=== PATIENT | male | born 1965 | race Caucasian/White ===

== ENCOUNTER → 2018-09-18 15:55 | Outpatient (CLI) | payer OTHER, SELFPAY | PROVIDERS: Referring Provider Otolaryngology Otolaryngology/Facial Plastic Surgery; Visit Provider Otolaryngology Otolaryngology/Facial Plastic Surgery | DX: J32.9 Chronic sinusitis, unspecified (principal) | CPT/HCPCS: 87070; 87205 ==

== ENCOUNTER → 2019-12-08 15:18 | Outpatient (CLI) | payer OTHER, SELFPAY ==
[2017-10-12 13:26] VITALS: BMI 22.7
== END ==
PROVIDERS: Referring Provider Otolaryngology; Visit Provider Otolaryngology Otolaryngology/Facial Plastic Surgery
DX: J32.9 Chronic sinusitis, unspecified (principal)
CPT/HCPCS: 87070; 87186; 87205

== ENCOUNTER 2020-01-09 19:30 | Emergency (ER) | payer OTHER, SELFPAY ==
[2020-01-09 19:31] VITALS: BP 139/84; PULSE 105; RESP 15; TEMP 36.3; O2SAT 100; BMI 22.1
--- NOTE | 2020-01-09 19:42 | CT_ITS ---
STUDY: CT SOFT TISSUE NECK WITH CONTRAST REASON FOR EXAM: Male, 54 years old. LEFT NECK PAIN, dysphagia. RADIATION DOSAGE (If Supplied By Facility): CTDIvol = ( 18.10 ) mGy, DLP = ( 551.52 ) mGycm TECHNIQUE: The patient was scanned in a multi-detector CT scanner. High resolution transaxial imaging was performed following intravenous administration of IV 75mL [id number]-300. Sagittal and coronal images were reconstructed. Individualized dose optimization techniques were used for this CT. COMPARISON: None. FINDINGS: Normal bilateral parotid glands. Normal bilateral patient accounts manager spaces. Normal bilateral parapharyngeal spaces. Normal bilateral carotid spaces. Normal bilateral submandibular glands and spaces. Normal visualized nasopharynx. Normal retropharyngeal space. Normal perivertebral space. Normal visualized bilateral faucial tonsils. The visualized tongue, tongue base and oropharynx are normal. The visualized cervical lymph nodes (levels I-) are within normal size limits, and maintain normal morphology. There is no demonstrated solid or cystic mass lesion. There is no abnormal contrast enhancement. Normal epiglottis, bilateral vallecula and hypopharynx. The pre-epiglottic and paraglottic adipose spaces are normal. Normal visualized bilateral piriform sinuses, aryepiglottic folds, vocal cords, and arytenoid-cricoid articulations. Normal subglottic trachea. Normal bilateral lobes of the thyroid gland. Normal visualized pulmonary apices. Normal visualized paranasal sinuses. Normal visualized cervical spine. CT/Soft Tissue Neck WITH Contrast IMPRESSION: Normal enhanced CT examination of the soft tissues of the neck. Electronically Signed: Winifred Gómez MD at 20:45 EST Tel , Service support ,
--- NOTE | 2020-01-09 19:43 | ED.DCSUM_ITS ---
History of Present Illness Chief Complaint: Other, Pain/Inj Detail of Chief Complaint: Left neck pain Informant: Patient Onset: Weeks, - - Worse today Current Severity: Mild Maximum Severity: Moderate Narrative: She presents with left-sided neck pain. He states he has a degree of chronic pain there from sinus drainage. Today pain is been significantly worse and has had intermittent difficulty swallowing. No fever or chills. He states he just finished an antibiotic about 10 days ago for sinus infection. Past Medical History - Allergies and Home Meds Allergies/Adverse Reactions: Allergies No Known Allergies Allergy (Verified 01/09/20 19:38) Primary Care Physician: Dilip Trevino MD [Primary Care Provider] - Surgical History: - - Ablation of varicose veins Smoking Status: Never smoker Review of Systems General: Denies: Chills, Fever Eyes: Denies: Visual changes - bilaterally ENT: Reports: Sore throat. Denies: Bilateral ear pain Cardiovascular: Denies: Chest pain Respiratory: Denies: Dyspnea, Cough Gastrointestinal: Denies: Abdominal pain, Nausea, Vomiting, Diarrhea Genitourinary: Denies: Dysuria Musculoskeletal: Denies: Extremity Pain Neurological: Denies: Headache Hematologic: Denies: Easy bruising, Easy bleeding Allergy: Denies: Uticaria Physical Exam Vital Signs/Narrative: Vital Signs Temp Pulse Resp BP Pulse Ox 01/09/20 19:31 97.4 F L 105 H 15 139/84 H 100 Inital Vital Signs reviewed: Yes General: Well nourished, Well developed, - - Patient is in no acute distress. He is lying with head of bed elevated approximate 45 degrees and having no difficulty with speaking or swallowing. Head: Normocephalic ENT: Moist mucous membranes, - - Posterior pharynx examination is normal. Neck: Supple Cardiovascular: Regular rate, Regular rhythm Respiratory: No distress, CTA bilaterally Abdomen: Soft, Nontender Back: Nontender Extremities: Nontender Skin: Normal color, No rash Neurological: Alert, Oriented x3 Psychological: Normal affect Diagnostic/Tx/Re-eval Impressions Soft Tissue Neck CT 01/09/20 19:42 IMPRESSION: Normal enhanced CT examination of the soft tissues of the neck. Electronically Signed: Winifred Gómez MD at 20:45 EST Tel , Service support , 01/09/20 19:42 CT Neck [Soft Tissue Neck WITH Contrast] [CT] Stat Laboratory Results 01/09/20 01/09/20 19:30 19:30 WBC 8.8 RBC 5.13 Hgb 16.6 H Hct 46.7 MCV 91.0 MCH 32.4 H MCHC 35.5 RDW Std Deviation 37.6 RDW Coeff of Harpreet 11.3 L Plt Count 170 MPV 10.7 Immature Gran % (Auto) 0.500 Neut % (Auto) 78.2 H Lymph % (Auto) 13.2 L [place] % (Auto) 7.4 Eos % (Auto) 0.2 Baso % (Auto) 0.5 Absolute Neuts (auto) 6.9 Absolute Lymphs (auto) 1.16 Nucleated RBC % 0 Sodium 138 Potassium 4.2 Chloride 103 Carbon Dioxide 31.0 Anion Gap 4 L BUN 14 Creatinine 1.18 Estim Creat Clear Calc 81.28 Est GFR (MDRD) Af Amer 83 Est GFR (MDRD) Non-Af 69 BUN/Creatinine Ratio 11.9 Glucose 92 Calcium 9.2 - Medical Decision Making Test results discussed with patient at bedside. He is reassured with these findings. He will follow-up with Dr. Trevino. ED Disposition - Plan for ED Patient: Disposition: Home or Assisted Living Diagnosis: Neck pain Instructions: NECK PAIN, No Trauma Referrals: Dilip Trevino MD [Primary Care Provider] - 1 Week
[2020-01-09 20:02] LABS: Absolute Lymphocyte Count 1.16 X10^3/uL (0.83-4.51); Absolute Neutrophil Count 6.9 X10^3/uL (2.0-7.7); Basophil# 0.04 X10^3/uL; Basophil% 0.5 % (0-1); Eosinophil# 0.02 X10^3/uL; Eosinophils% 0.2 % (0-5); Hematocrit 46.7 % (40-54); Hemoglobin 16.6 g/dL (13.0-16.5); Lymphocyte # 1.16 X10^3/ul (4.0); Lymphocyte % 13.2 % (19-41); Mean Corp Hgb Conc 35.5 g/dL (32-36); Mean Corpuscular Hgb 32.4 pg (27.0-32.0); Mean Platelet Vol. 10.7 fl (6.2-12.0); Monocyte# 0.65 X10^3/uL; Monocyte% 7.4 % (0-10); NRBC Flagged by Analyzer 0 % (0-5); Neutrophil # 6.88 X10^3/uL (2.7-7.7); Neutrophil % 78.2 % (47-70); Platelet Count 170 K/mm3 (150-450); RBC Distribution Width CV 11.3 % (11.6-14.6); RBC Distribution Width SD 37.6 fl (35.1-43.9); Red Blood Count 5.13 M/mm3 (4.6-6.2); White Blood Count 8.8 K/mm3 (4.4-11.0)
[2020-01-09 20:17] LABS: Anion Gap 4 (5-15); BUN 14 mg/dL (7-18); BUN/Creat Ratio 11.9 RATIO (10-20); Calcium,Total 9.2 mg/dL (8.5-10.1); Chloride 103 mmol/L (98-107); Creatinine, Serum 1.18 mg/dL (0.70-1.30); EST Glomerular Filtration Rate 69 mL/min (>60); Est Glom Filt Rate - Afr Amer 83 mL/min (>60); Estimated Creatinine Clearance 81.28 ml/min; Glucose 92 mg/dL (74-106); Potassium 4.2 mmol/L (3.5-5.1); Sodium Level 138 mmol/L (136-145)
[2020-01-09 21:30] VITALS: RESP 16
[2020-01-09 21:38] VITALS: PULSE 71; O2SAT 98
== END 2020-01-09 21:43 | disposition home or self-care (01) ==
PROVIDERS: Emergency Provider Emergency Medicine; PCP Otolaryngology Otolaryngology/Facial Plastic Surgery
DX: M54.2 Cervicalgia (principal)
CPT/HCPCS: 70491; 80048; 85025; 99283; Q9967

== ENCOUNTER → 2021-01-26 | Outpatient (CLI) | payer OTHER, SELFPAY | END | disposition home or self-care (01) | LOC: LABSPEC 15:03 | PROVIDERS: PCP Family Medicine; Visit Provider Otolaryngology Otolaryngology/Facial Plastic Surgery | DX: J32.8 Other chronic sinusitis (principal) | CPT/HCPCS: 87070; 87205 ==

== ENCOUNTER 2021-02-11 10:09 | Outpatient (RCR) | payer OTHER, SELFPAY ==
[2021-02-11] MEDS: COVID-19 VACC, MRNA(PFIZER)/PF 30 MCG/0.3 ML SYRINGE IM (08:15)
[2021-03-04] MEDS: COVID-19 VACC, MRNA(PFIZER)/PF 30 MCG/0.3 ML SYRINGE IM (08:16)
== END 2021-02-11 23:59 ==
LOC: IMMUN 10:09
PROVIDERS: PCP Family Medicine; Visit Provider Family Medicine
DX: Z23 Encounter for immunization (principal)
CPT/HCPCS: 0001A; 0002A; 91300

== ENCOUNTER → 2022-11-02 | Outpatient (CLI) | payer BC, SELFPAY ==
[2022-11-02 14:50] LABS: Erythrocyte Sedimentation Rate 7 mm/hr (0-20)
[2022-11-02 14:52] LABS: Absolute Lymphocyte Count 0.84 X10^3/uL (0.83-4.51); Absolute Neutrophil Count 1.4 X10^3/uL (2.0-7.7); Basophil# 0.02 X10^3/uL; Basophil% 0.7 % (0-1); Eosinophil# 0.02 X10^3/uL; Eosinophils% 0.7 % (0-5); Hematocrit 46.3 % (40-54); Hemoglobin 15.9 g/dL (13.0-16.5); Lymphocyte # 0.84 X10^3/ul (0.83-4.51); Lymphocyte % 31.2 % (19-41); Mean Corp Hgb Conc 34.3 g/dL (32-36); Mean Corpuscular Hgb 32.5 pg (27.0-32.0); Mean Corpuscular Volume 94.7 fL (80-94); Mean Platelet Vol. 11.2 fl (6.2-12.0); Monocyte% 14.9 % (0-10); NRBC Flagged by Analyzer 0 % (0-5); Neutrophil % 52.1 % (47-70); Platelet Count 148 K/mm3 (150-450); RBC Distribution Width CV 11.1 % (11.6-14.6); RBC Distribution Width SD 38.5 fl (35.1-43.9); Red Blood Count 4.89 M/mm3 (4.6-6.2); White Blood Count 2.7 K/mm3 (4.4-11.0)
[2022-11-02 15:25] LABS: AST(SGOT) 25 U/L (15-37); Alanine Aminotransfer ALT/SGPT 39 U/L (16-61); Albumin, Serum 3.9 g/dL (3.2-5.0); Alkaline Phosphatase 89 U/L (45-117); Anion Gap 5 (5-15); BUN 10 mg/dL (7-18); CRP 9.91 mg/L (0.0-3.0); Calcium,Total 8.9 mg/dL (8.5-10.1); Chloride 102 mmol/L (98-107); Creatinine, Serum 0.91 mg/dL (0.70-1.30); EST Glomerular Filtration Rate 92 mL/min (>60); Est Glom Filt Rate - Afr Amer 111 mL/min (>60); Globulin 3.9 g/dL (2.2-4.2); Glucose 74 mg/dL (74-106); LDH 153 U/L (87-241); Potassium 3.8 mmol/L (3.5-5.1); Protein, Total 7.8 g/dL (6.4-8.2); Sodium Level 139 mmol/L (136-145)
[2022-11-06 16:08] LABS: Anti-Centromere B Ab <0.2 AI (0.0-0.9); Anti-Chromatin <0.2 AI (0.0-0.9); Anti-Jo <0.2 AI (0.0-0.9); Anti-Scleroderma-70 AB <0.2 AI (0.0-0.9); Endomysial Antibody IgA Negative (Negative); RNP Ab <0.2 AI (0.0-0.9); SJOGREN'S Anti-SS-A test < 0.2 AI (0.0-0.9); SJOGREN'S Anti-SS-B test < 0.2 AI (0.0-0.9); Smith Ab <0.2 AI (0.0-0.9)
[2022-11-07 16:07] LABS: Immunoglobulin A 237 mg/dL (90-386); t-Transglutaminase IgA <2 U/mL (0-3)
[2022-11-07 16:08] LABS: Anti-dsDNA Ab <1 IU/mL (0-9)
[2022-11-08 12:08] LABS: Albumin 3.9 g/dL (2.9-4.4); Alpha-1-Globulins 0.2 g/dL (0.0-0.4); Alpha-2-Globulins 0.7 g/dL (0.4-1.0); Cytoplasmic Ab (C-ANCA) <1:20 titer (Neg:<1:20); Gamma Globulin 0.9 g/dL (0.4-1.8); Immunoglobulin A 243 mg/dL (90-386); Immunoglobulin E 11 IU/mL (6-495); Immunoglobulin G 913 mg/dL (603-1613); Immunoglobulin M 90 mg/dL (20-172); PROEL- TOTAL PROTEIN 6.8 g/dL (6.0-8.5)
[2022-11-09 10:31] LABS: Perinuclear Ab (P-ANCA) <1:20 titer (Neg:<1:20)
== END | disposition home or self-care (01) ==
PROVIDERS: PCP Family Medicine; Referring Provider Internal Medicine Gastroenterology; Visit Provider Internal Medicine Gastroenterology
DX: R19.7 Diarrhea, unspecified (principal); R10.9 Unspecified abdominal pain; R63.4 Abnormal weight loss
CPT/HCPCS: 36415; 80053; 82784; 82785; 83516; 83615; 84165; 85025; 85652; 86140; 86225; 86235; 86255; 86256; 86334

== ENCOUNTER → 2022-11-03 | Outpatient (CLI) | payer BC, SELFPAY ==
[2022-11-07 16:34] LABS: Calprotectin, Stool <16 ug/g (0-120)
[2022-11-08 11:06] LABS: H. PYLORI STOOL AG Negative (Negative); Pancreatic Elastase, Fecal < 50 (>200)
== END | disposition home or self-care (01) ==
LOC: LABSPEC 08:32
PROVIDERS: PCP Family Medicine; Referring Provider Internal Medicine Gastroenterology; Visit Provider Internal Medicine Gastroenterology
DX: R19.7 Diarrhea, unspecified (principal); R10.9 Unspecified abdominal pain; R63.4 Abnormal weight loss
CPT/HCPCS: 82653; 83630; 83993; 87177; 87209; 87329; 87338; 87493; 87506

== ENCOUNTER → 2022-11-22 | Outpatient (CLI) | payer BC, SELFPAY ==
--- NOTE | 2022-11-22 09:25 | NM_ITS ---
CLINICAL: 57-year-old male with history of diarrhea. SEMI-SOLID PHASE 99m Tc SULFUR COLLOID GASTRIC EMPTYING STUDY COMPARISON: None available FINDINGS: The patient was administered 1.2 mCi of 99m Tc sulfur colloid mixed with oatmeal and consumed per os. Image acquisitions in the anterior-posterior projections were obtained for 60 minutes. There is prompt visualization of the stomach. There is no gastroesophageal reflux identified. The T ? raw data emptying was calculated to be 25.04 minutes, (Normal: 12-56 minutes). NM/Gastric Emptying Study IMPRESSION: 1. NORMAL 99m Tc sulfur colloid semi-solid phase (oatmeal) gastric emptying imaging examination. A. There is normal and preserved semi-solid phase gastric emptying compared to normal controls. (Corbin et al, J Nucl Med Tech 38: 186, 2010). Electronically Signed: Shiv Quiles, at 20:14 EST ,
== END | disposition home or self-care (01) ==
LOC: NM 09:25
PROVIDERS: PCP Family Medicine; Referring Provider Internal Medicine Gastroenterology; Visit Provider Internal Medicine Gastroenterology
DX: R10.9 Unspecified abdominal pain (principal); R19.7 Diarrhea, unspecified; R63.4 Abnormal weight loss
CPT/HCPCS: 78264; A9541

== ENCOUNTER → 2023-02-26 | Outpatient (CLI) | payer BC, SELFPAY ==
[2023-02-26 14:50] LABS: Erythrocyte Sedimentation Rate 7 mm/hr (0-20)
[2023-02-26 15:00] LABS: Absolute Neutrophil Count 4.4 X10^3/uL (2.0-7.7); Basophil# 0.03 X10^3/uL; Basophil% 0.5 % (0-1); Eosinophil# 0.06 X10^3/uL; Hematocrit 40.9 % (40-54); Hemoglobin 14.9 g/dL (13.0-16.5); Lymphocyte % 13.9 % (19-41); Mean Corp Hgb Conc 36.4 g/dL (32-36); Mean Corpuscular Hgb 33.8 pg (27.0-32.0); Mean Corpuscular Volume 92.7 fL (80-94); Mean Platelet Vol. 11.2 fl (6.2-12.0); Monocyte# 0.45 X10^3/uL; Monocyte% 7.8 % (0-10); NRBC Flagged by Analyzer 0 % (0-5); Neutrophil % 76.5 % (47-70); Platelet Count 146 K/mm3 (150-450); RBC Distribution Width CV 11.4 % (11.6-14.6); RBC Distribution Width SD 38.6 fl (35.1-43.9); Red Blood Count 4.41 M/mm3 (4.6-6.2); White Blood Count 5.8 K/mm3 (4.4-11.0)
[2023-02-26 16:20] LABS: AST(SGOT) 20 U/L (15-37); Alanine Aminotransfer ALT/SGPT 31 U/L (16-61); Albumin, Serum 3.5 g/dL (3.2-5.0); Alkaline Phosphatase 80 U/L (45-117); Anion Gap 4 (5-15); BUN 10 mg/dL (7-18); Calcium,Total 8.5 mg/dL (8.5-10.1); Chloride 104 mmol/L (98-107); Creatinine, Serum 0.91 mg/dL (0.70-1.30); EST Glomerular Filtration Rate 92 mL/min (>60); Est Glom Filt Rate - Afr Amer 111 mL/min (>60); Free T3 2.4 pg/mL (2.18-3.98); Globulin 3.5 g/dL (2.2-4.2); Glucose 96 mg/dL (74-106); LDH 146 U/L (87-241); Potassium 3.7 mmol/L (3.5-5.1); Sodium Level 136 mmol/L (136-145); T4 Free Direct 1.13 ng/dL (0.76-1.46); Thyroid Stim Hormone (TSH) 1.21 uIU/mL (0.358-3.74)
[2023-02-26 16:27] LABS: Vitamin B12 942 pg/mL (211-911)
[2023-02-28 15:08] LABS: Endomysial Antibody IgA Negative (Negative)
[2023-03-01 14:20] LABS: Immunoglobulin A 231 mg/dL (90-386); t-Transglutaminase IgA <2 U/mL (0-3)
[2023-03-01 14:22] LABS: Vitamin D 1,25-Dihydroxy 69.2 pg/mL (24.8-81.5)
[2023-03-01 22:06] LABS: Albumin 3.9 g/dL (2.9-4.4); Alpha-1-Globulins 0.3 g/dL (0.0-0.4); Alpha-2-Globulins 0.7 g/dL (0.4-1.0); Cytoplasmic Ab (C-ANCA) <1:20 titer (Neg:<1:20); Gamma Globulin 0.9 g/dL (0.4-1.8); IgG, Quant 861 mg/dL (603-1613); Immunoglobulin A 224 mg/dL (90-386); Immunoglobulin E 11 IU/mL (6-495); Immunoglobulin G, Subclass 1 408 mg/dL (248-810); Immunoglobulin G, Subclass 2 280 mg/dL (130-555); Immunoglobulin G, Subclass 3 72 mg/dL (15-102); Immunoglobulin G, Subclass 4 8 mg/dL (2-96); Immunoglobulin M 81 mg/dL (20-172); PROEL- TOTAL PROTEIN 6.8 g/dL (6.0-8.5)
[2023-03-02 15:17] LABS: Perinuclear Ab (P-ANCA) <1:20 titer (Neg:<1:20)
[2023-03-05 16:35] LABS: Immunoglobulin G 861
== END | disposition home or self-care (01) ==
PROVIDERS: PCP Family Medicine; Referring Provider Internal Medicine Gastroenterology; Visit Provider Internal Medicine Gastroenterology
DX: K86.81 Exocrine pancreatic insufficiency (principal); R63.4 Abnormal weight loss
CPT/HCPCS: 36415; 80053; 82607; 82652; 82784; 82785; 82787; 83516; 83615; 84165; 84439; 84443; 84481; 85025; 85652; 86140; 86255; 86256; 86334